=== PATIENT | male | born 1960 | race Asian ===

== ENCOUNTER 2019-10-25 13:02 | Outpatient (CLI) | payer OTHER | END 2019-10-25 13:03 | disposition critical access hospital (66) | LOC: EMS 13:02 | PROVIDERS: ATTEND Surgery | DX: R42 Dizziness and giddiness (principal); R03.0 Elevated blood-pressure reading, without diagnosis of hypertension | CPT/HCPCS: A0425; A0429 ==

== ENCOUNTER 2019-10-25 13:22 | Emergency (ER) | payer OTHER ==
[2019-10-25] MEDS ORDERED: SODIUM CHLORIDE 0.9% 1,000 ML IV ONE ×2 (13:37→14:46)
[2019-10-25 13:49] LABS: BASOPHILS % (AUTO) 0.5 %; EOSINOPHILS % (AUTO) 0.1 %; HGB - HEMOGLOBIN 14.7 g/dL (14.0-18.0); MEAN CORPUSCULAR HEMOGLOBIN 32.6 pg (27.0-31.0); MEAN CORPUSCULAR HGB CONC 33.7 g/dL (32.0-36.0); MEAN CORPUSCULAR VOLUME 96.7 fL (80.0-94.0); MEAN PLATELET VOLUME 9.3 fL (7.4-11.4); MONOCYTES # (AUTO) 0.2 10^3/uL (0.0-1.0); MONOCYTES % (AUTO) 3.2 %; NEUTROPHILS # (AUTO) 6.3 10^3/uL (1.5-6.6); NEUTROPHILS % (AUTO) 82.9 %; PLT - PLATELET COUNT 219 10^3/uL (130-450); RED BLOOD COUNT 4.51 10^6/uL (4.70-6.10); RED CELL DISTRIBUTION WIDTH 12.5 % (12.0-15.0); WHITE BLOOD COUNT 7.6 x10^3/uL (4.8-10.8)
--- NOTE | 2019-10-25 13:57 | ED Physician Documentation ---
History of Present Illness - Stated complaint Stated Complaint: WEAKNESS - Chief complaint Chief Complaint: General - History obtained from History obtained from: Patient, EMS - History of Present Illness Timing: Today - Additonal information Additional information: Previously well 59-year-old male awoke this morning when he went to get out of bed he felt a bit dizzy and lightheaded. He felt that when he change positions he got lightheaded again. He did not have any nausea or vomiting associated with this denies any visual changes denies any weakness. He denies any recent illness. He believes his exposure to coronavirus is low and he has been quarantined with his in their home. He denies any black or bloody stool does state that he has 2 beers a night. Review of Systems Constitutional: denies: Fever Eyes: denies: Decreased vision Ears: denies: Ear pain Nose: denies: Rhinorrhea / runny nose, Congestion Throat: denies: Sore throat Cardiac: denies: Chest pain / pressure, Palpitations Respiratory: denies: Dyspnea, Cough GI: denies: Abdominal Pain, Nausea, Vomiting : denies: Dysuria, Frequency Skin: denies: Rash Musculoskeletal: denies: Neck pain, Back pain, Extremity pain PD PAST MEDICAL HISTORY - Past Medical History Past Medical History: No Cardiovascular: None Respiratory: None Neuro: None Endocrine/Autoimmune: None GI: None : None HEENT: None Psych: None Musculoskeletal: None Derm: None - Past Surgical History Past Surgical History: No - Allergies Allergies/Adverse Reactions: Allergies Allergy/AdvReac Type Severity Reaction Status Date / Time No Known Drug Allergies Allergy Verified 10/25/19 13:51 - Social History Does the pt smoke?: No Smoking Status: Never smoker - Immunizations Immunizations are current?: Yes - POLST Patient has POLST: No PD ED PE NORMAL - Vitals Vital signs reviewed: Yes (hypertensive ) - General General: Alert and oriented X 3, No acute distress, Well developed/nourished - HEENT HEENT: Atraumatic, PERRL, EOMI, Ears normal, Moist mucous membranes, Pharynx benign, Dentition benign - Neck Neck: Supple, no meningeal sign, No bony TTP - Cardiac Cardiac: RRR, No murmur - Respiratory Respiratory: No respiratory distress, Clear bilaterally - Abdomen Abdomen: Soft, Non tender - Back Back: No CVA TTP, No spinal TTP - Derm Derm: Normal color, Warm and dry, No rash - Extremities Extremities: No deformity, No edema - Neuro Neuro: Alert and oriented X 3, net software architect 2-12 intact, No motor deficit, No sensory deficit, Normal speech Eye Opening: Spontaneous Motor: Obeys Commands Verbal: Oriented GCS Score: 15 - Psych Psych: Normal mood, Normal affect Results - Vitals Vitals: Vital Signs - 24 hr 10/25/19 10/25/19 13:27 14:33 Temperature 36.8 C Heart Rate 86 74 Respiratory 16 13 Rate Blood Pressure 169/105 H 164/108 H O2 Saturation 94 97 Oxygen O2 Source Room air - EKG (time done) 1344 Rate: Rate (enter#) (72) Rhythm: NSR Intervals: RBBB Compare to prior EKG: Old EKG unavailable Computer interpretation: Agree with computer - Labs Labs: Laboratory Tests 10/25/19 10/25/19 10/25/19 13:40 13:40 13:40 WBC 7.6 RBC 4.51 L Hgb 14.7 Hct 43.6 MCV 96.7 H MCH 32.6 H MCHC 33.7 RDW 12.5 Plt Count 219 MPV 9.3 Neut # (Auto) 6.3 Lymph # (Auto) 1.0 L Page # (Auto) 0.2 Eos # (Auto) 0.0 Baso # (Auto) 0.0 Absolute Nucleated RBC 0.00 Nucleated RBC % 0.0 Sodium 134 L Potassium 3.6 Chloride 104 Carbon Dioxide 23 Anion Gap 7.0 BUN 15 Creatinine 0.8 Estimated GFR (MDRD) 99 Glucose 122 H Calcium 8.8 Total Bilirubin 1.0 AST 112 H ALT 28 Alkaline Phosphatase 63 Troponin I High Sens 2.7 Total Protein 8.4 H Albumin 4.2 Globulin 4.2 Albumin/Globulin Ratio 1.0 Lipase 50 Procedures - IVC sono (time) 1333 Bedside IVC sono: IVC measures (cm) (0.87), IVC collapsed c insp (cm) (complete), Dehydration (est 2 liter deficit) PD MEDICAL DECISION MAKING - ED course Complexity details: reviewed old records, reviewed results, re-evaluated patient, considered differential, d/w patient ED course: 59-year-old male with acute onset dizziness and lightheaded this beginning this morning is found to be dehydrated on interrogation of the inferior vena cava. Is administered intravenous saline. He has improvement in his symptoms. Elect rocardiogram and blood work are otherwise unremarkable. Departure - Departure Disposition: 01 Home, Self Care Clinical Impression: Dehydration Condition: Stable Instructions: ED Dehydration Follow-Up: Va Torrez PA-C [Physician No Access] -
[2019-10-25 14:08] LABS: ALBUMIN 4.2 g/dL (3.2-5.5); CALCIUM 8.8 mg/dL (8.5-10.3); CREATININE 0.8 mg/dL (0.6-1.2); TOTAL PROTEIN 8.4 g/dL (6.7-8.2)
[2019-10-25 15:34] LABS: BILIRUBIN,URINE NEGATIVE (NEGATIVE); GLUCOSE, URINE (UA) NEGATIVE (NEGATIVE); KETONES,URINE (UA) NEGATIVE (NEGATIVE); LEUKOCYTE ESTERASE, URINE NEGATIVE (NEGATIVE); NITRITE,URINE NEGATIVE (NEGATIVE); OCCULT BLOOD,URINE NEGATIVE (NEGATIVE); PROTEIN,URINE NEGATIVE (NEGATIVE); UROBILINOGEN,URINE 0.2 (NORMAL) E.U./dL (NORMAL)
[2019-10-25 15:45] VITALS: BP 150/92
[2019-10-25 15:45] LABS: CLARITY,URINE CLEAR (CLEAR)
== END 2019-10-25 15:46 | disposition home or self-care (01) ==
LOC: EDUNIT# → ED 13:22
DX: E86.0 Dehydration (principal)
CPT/HCPCS: 36415; 80053; 81001; 81003; 81599; 83690; 84484; 85025; 87086; 93005; 96360; 96361; 99283

== ENCOUNTER 2021-05-01 11:53 | Outpatient (CLI) | payer OTHER | END 2021-05-01 11:54 | disposition short-term general hospital (02) | LOC: EMS 11:53 | PROVIDERS: ATTEND Emergency Medicine | DX: R42 Dizziness and giddiness (principal); R47.02 Dysphasia; R29.898 Other symptoms and signs involving the musculoskeletal system | CPT/HCPCS: A0425; A0429 ==

== ENCOUNTER 2021-06-17 09:05 | Outpatient (CLI) | payer OTHER ==
[2021-06-17 10:12] VITALS: BP 118/81
--- NOTE | 2021-06-17 10:12 | SLEEP CARE CONSULTATION ---
Information from patient questionnaire entered by Anna Brannon MA. I have reviewed and concur with the information entered by Anna Brannon MA. This document represents the service I personally performed and the decisions made by me, Jonathan Chambers MD, [facility]. History of Present Illness Service Date and Time: 06/17/2021 0905 Reason for Visit: New patient (LAST SEEN 2014), Re-establish care (LAST SEEN 2014, NO CPAP ) Date of Onset: HAD A STROKE Usual bedtime: 8:00 PM Time it takes to fall asleep: 30 MINUTES Snores at night: Yes Observed to quit breathing while asleep: No Sleeps alone due to snoring: Yes Number of times waking at night: 1 Reasons for waking at night: reports: Other (URINATION) Toss, Turn, or Twitch while sleeping: No Recalls having dreams: No Usually gets out of bed at: 0300 - 0500 Feels refreshed in the morning: Yes Morning headache: No Sleepy or fatigued during the day: No Ever fallen asleep while driving: No Takes day naps: Yes Dreams during day naps: Yes Year and Where: 6 - 7 YEARS AGO, [facility] Additional HPI information: I had the pleasure of seeing Mr. Avila today regarding obstructive sleep apnea-hypopnea. As you know, he is a 55 year old gentleman who was diagnosed to have moderate obstructive sleep apnea-hypopnea here in 2014. The AHI was 20.5. Earl oxygen saturation was 82%. He was under the impression that the sleep- disordered breathing was mild and did not pursue treatment. Recently, he had a transient ischemic attack and stroke on 05/01 and 05/24/2021 respectively. He did recover fully. His neurologist recommends the sleep-disordered breathing be treated. He continues to snore loudly at home. His has never seen him quit breathing. 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 Patient is and lives in [place]. Have you smoked in the past 12 months: Yes Cigarettes per day (20/pack): 20 Years of smokin Quit date: 2005 Smoking Pack Years: 20.0 Alcohol use: Yes Alcohol amount and frequency: 2 BEERS X DAILY Caffeine use: Yes Caffeine amount and frequency: 1 X DAILY Family History Family Hx Sleep Apnea: Father: Snoring Allergies and Home Medications Known drug allergies: No Drug allergies reviewed: Yes Home medication list reviewed: Yes (amlodpine, clopidogrel, Lipitor, aspirin) Review of Systems Cardiovascular: reports: high blood pressure Respiratory: denies: shortness of breath, wheeze, sputum production, chronic cough, other Gastrointestinal: denies: heartburn, difficulty swallowing, nausea, vomitting, diarrhea, abdominal pain, other Urinary: denies: incontinence, frequency, urgency, impotence, other Psychiatric: denies: Attention Deficit Hyperactivity, anxiety, depression, mood disorder, claustrophobia, other Ear/Nose/Throat: reports: nasal congestion, wisdom teeth removed Endocrine: denies: thyroid disease, history of goiter, sluggishness, too hot or cold, excessive thirst, increased appetite, increased urination, unexplained weakness, other Musculoskeletal: reports: joint pain, back pain Physical Exam Vital signs obtained and entered by: GLORIA THOMAS Blood Pressure: 118/81 (left) Cuff size: wrist Heart Rate: 72 O2 Saturation: 95 (with heavy mask) Height: 5 ft 4 in Weight: 160 lb Body Mass Index: 27.4 BMI Classification: Overweight Impression and Plan IMPRESSION: 1. Obstructive Sleep Apnea-Hypopnea Syndrome, moderate, as previously diagnosed but untreated. Leaving the sleep-disordered breathing untreated can increase the double the risk of having another stroke. Because his in-laboratory polysomnography was over 6 years ago, I will repeat it to confirm the diagnosis and severity. A manual CPAP/BiPAP titration study will follow if he does have the sleep-disordered breathing again. Plan: 1. Schedule polysomnography + manual CPAP titration study and return in 1 to 2 weeks after the study to discuss result and initiate therapy. 2. Avoid long distance driving or when feeling sleepy. 3. Avoid alcohol, sedative and muscle relaxant around bedtime. Follow up with Sleep Care in: 1-2 months Visit Type: In Office Time Spent with Patient (minutes): 15 Provider Statement: I spent 100% of the Face to Face Visit with the patient with greater than 50% spent counseling the patient and coordination of care.
== END 2021-06-17 09:06 | disposition home or self-care (01) ==
LOC: SC 09:05
PROVIDERS: ATTEND Internal Medicine Pulmonary Disease
DX: G47.33 Obstructive sleep apnea (adult) (pediatric) (principal); F17.210 Nicotine dependence, cigarettes, uncomplicated
CPT/HCPCS: 99202; 99212

== ENCOUNTER 2021-08-29 19:27 | Outpatient (CLI) | payer OTHER | END 2021-08-29 19:28 | disposition home or self-care (01) | LOC: SC 19:27 | PROVIDERS: ATTEND Internal Medicine Pulmonary Disease | DX: G47.33 Obstructive sleep apnea (adult) (pediatric) (principal) | CPT/HCPCS: 95810 ==

== ENCOUNTER 2021-09-23 14:44 | Outpatient (CLI) | payer OTHER ==
[2021-09-23 15:26] VITALS: BP 135/71
--- NOTE | 2021-09-23 15:26 | SLEEP CARE CONSULTATION ---
Information from patient questionnaire entered by Anna Brannon MA. I have reviewed and concur with the information entered by Anna Brannon MA. This document represents the service I personally performed and the decisions made by me, Jonathan Chambers MD, [facility]. History of Present Illness Service Date and Time: 09/23/2021 1444 Initial [place] Sleepiness Scale score: 6 (IN 2020) Current [place] Sleepiness Scale score: 2 (2021) Additional HPI information: Mr. Avila returned for follow up of the sleep study he had on 08/29/2021. The polysomnography showed that the patient had normal sleep efficiency. Except for mild sleep fragmentation, the sleep architecture was also normal. Respiratory monitoring showed moderate obstructive sleep apnea-hypopnea (AHI = 23.2) associated with frequent arousals, oxyhemoglobin desaturation and moderate hypoxia (allison oxygen saturation of 76%). Baseline oxygen saturation was normal. The patient had limited supine sleep (supine AHI = 89.1; non-supine = 20.78). Snore was light to loud in intensity. There was no significant periodic leg movement of sleep. Cardiac rhythm was normal sinus rhythm without significant arrhythmia. No abnormal behavior (parasomnia) observed during the night. The patient was informed of these findings. I explained to him the pathophysiology behind obstructive sleep apnea. We then spent quite a bit of time discussing different treatment options. For mild obstructive sleep apnea, surgery and oral appliance are alternatives to nasal CPAP therapy but in moderate or severe cases, nasal CPAP is the most effective and reliable treatment. Weight loss in an obese individual is strongly recommended. After some discussion, he opted to go with the nasal CPAP therapy. I explained to him how CPAP machine works and what to expect when using the machine. He is encouraged to use CPAP every night especially in the first 2 to 3 nights in order to get used to it. He should call his CPAP supplier or me to discuss any mechanical problem that may occur. If he snores or feels like he is not getting enough air from the machine, he should notify me and I will increase the pressure. Sleep Study - Results Type of Sleep Study: Polysomnography (F/U POLY) Year and Where: 6 - 7 YEARS AGO, [facility] Allergies and Home Medications Known drug allergies: No Drug allergies reviewed: Yes Home medication list reviewed: Yes Allergy and home medication list: Allergies No Known Drug Allergies Allergy (Verified 10/25/19 13:51) Review of Systems Review of systems same as previous: Yes Physical Exam Vital signs obtained and entered by: GLORIA THOMAS Blood Pressure: 135/71 (RIGHT, PULSE 72, RESP 18, ) Heart Rate: 71 O2 Saturation: 96 (PAPER) Height: 5 ft 4 in Weight: 156 lb Body Mass Index: 26.7 BMI Classification: Overweight Impression and Plan IMPRESSION: 1. Obstructive Sleep Apnea-Hypopnea Syndrome, moderate, associated with moderate hypoxemia and sleep fragmentation. Most likely, this is the cause of the patients symptoms of unrefreshed sleep, and excessive daytime sleepine ss. As mentioned above, the patient will be started on autoCPAP set between 5 and 15 cmH2O. Depending on his response and compliance he may be brought back for an overnight CPAP titration study. PLAN: 1. Prescription made for an autoCPAP, heated humidifier, and related supplies. 2. Attempt to lose weight and avoid alcohol consumption near bedtime. 3. The patient is again cautioned about driving until his sleepiness completely resolves on the CPAP therapy. 4. Return for follow up after one month of using the CPAP. Prescriptions: Auto CPAP Follow up with Sleep Care in: 1-2 months Visit Type: In Office Time Spent with Patient (minutes): 15 Provider Statement: I spent 100% of the Face to Face Visit with the patient with greater than 50% spent counseling the patient and coordination of care.
== END 2021-09-23 14:45 | disposition home or self-care (01) ==
LOC: SC 14:44
PROVIDERS: ATTEND Internal Medicine Pulmonary Disease
DX: G47.33 Obstructive sleep apnea (adult) (pediatric) (principal)
CPT/HCPCS: 99212